=== PATIENT | female | born 1975 | race Caucasian/White ===

== ENCOUNTER 2022-08-19 08:31 | Emergency (ER) | payer OTHER ==
[~2022-08-19] VITALS: Ht 160 cm; Wt 56.2 kg
--- NOTE | 2022-08-19 08:50 | ED Integumentary General ---
General Chief Complaint: Skin/Wound Problems Stated Complaint: RIGHT FOOT PAIN Source: patient Exam Limitations: no limitations History of Present Illness Date Seen by Provider: Aug 19, 2022 Time Seen by Provider: 08:40 Initial Comments Patient is a 46-year-old female who presents to the emergency room with a chief complaint of right foot pain. Patient has been fighting a plantars wart for approximately 2-1/2 years. She moved here from [place] where she had been seeing a software quality test engineer for treatment. Has not been able to get rid of the wart. She did have cryotherapy approximately 2 weeks ago to the plantars wart complaining of increasing pain that is now causing some low back pain due to limping. She also complains of bilateral axillary cutaneous abscesses currently applying clindamycin topical gel without much relief. Took a course of doxycycline about 2 weeks ago for 7 days, no improvement. No fevers or chills. No swelling. No drainage. Severity: moderate Location: feet, extremities (bilateral axillae) Possible Cause: other (plantar wart) Associated Symptoms: other (lesions bilateral arm pits) Allergies and Home Medications Allergies Coded Allergies: No Known Drug Allergies (Unverified , 08/19/22) Patient Home Medication List Home Medication List Reviewed: Yes Doxycycline Hyclate (Doxycycline Hyclate) 100 Mg Tablet, 100 MG PO BID Prescribed by: KRYSTYNA CARABALLO on 08/19/22 0908 Tramadol HCl (Tramadol HCl) 50 Mg Tablet, 50 MG PO Q6H Prescribed by: KRYSTYNA CARABALLO on 08/19/22 0908 Review of Systems Review of Systems Constitutional: see HPI EENTM: no symptoms reported Respiratory: no symptoms reported Cardiovascular: no symptoms reported Gastrointestinal: no symptoms reported Genitourinary: no symptoms reported Musculoskeletal: joint pain (right foot pain) Skin: other (flat wart right foot) Past Smdrmjw-[id number] Hx Patient Social History Tobacco Use?: Yes Tobacco type used: Cigarettes Smoking Status: Current Everyday Smoker Use of E-Cig and/or Vaping dev: No Substance use?: No Alcohol Use?: No Pt feels they are or have been: No Physical Exam Vital Signs Vital Signs - First Documented 08/19/22 08:39 Temp 37.1 Pulse 98 Resp 16 B/P (MAP) 147/107 (120) Pulse Ox 95 O2 Delivery Room Air Capillary Refill : General Appearance: WD/WN, no apparent distress HEENT: PERRL/EOMI Cardiovascular: regular rate, rhythm Respiratory: lungs clear, normal breath sounds, no respiratory distress, no accessory muscle use Extremities: normal range of motion, normal inspection Neurologic/Psychiatric: alert, normal mood/affect, oriented x 3 Skin: normal color, warm/dry, other (Indurated area about 3 and half centimeters at the plantar surface of the right foot distal metatarsal #3/4. Tender to palpation. Hyperkeratotic. No erythema. Minimal swelling. Addit ionally patient has folliculitis in both axilla. No surrounding erythema. No drainage. 1 small area under the left axilla has a small pustule.) Progress/Results/Core Measures Results/Orders Vital Signs/I&O 08/19/22 08/19/22 08:39 09:22 Temp 37.1 37.1 Pulse 98 98 Resp 16 16 B/P (MAP) 147/107 (120) 135/94 Pulse Ox 95 95 O2 Delivery Room Air Room Air Departure Impression Primary Impression: Plantar wart of right foot Additional Impression: Folliculitis of both axillae Disposition: HOME, SELF-CARE Condition: Stable Departure-Patient Inst. Decision time for Depature: 09:04 Referrals: JAILENE TADEO DO (PCP/Family) Primary Care Physician Patient Instructions: Folliculitis, Plantar Warts (DC) Add. Discharge Instructions: You can use a shoe insert in your right shoe to help take the pressure off the wart ("metatarsal support pad"). This may help with discomfort. [id number] ibuprofen 3 tablets which is 600 mg every 6 hours with food as needed for pain. Additionally I have written you a prescription for some tramadol. You can take this in the evening when you are not working. 1 every 6 hours as needed. I am going to restart you on doxycycline 100 mg tablets twice a day for 10 days. This is for the lesions in your armpits. Use Dial soap under your arms for cleaning, this is a great antibacterial soap and needs to be used twice a day. If you develop redness or worsening swelling in your armpits, fever please return to the emergency room for reevaluation. Scripts Tramadol HCl (Tramadol HCl) 50 Mg Tablet 50 MG PO Q6H, #20 TAB Prov: KRYSTYNA CARABALLO MD 08/19/22 Doxycycline Hyclate (Doxycycline Hyclate) 100 Mg Tablet 100 MG PO BID for 10 Days, #20 TAB Prov: KRYSTYNA CARABALLO MD 08/19/22 KRYSTYNA CARABALLO MD Aug 19, 2022 08:50
[2022-08-19] MEDS ORDERED: DOXY100T2 PO (09:08)
[2022-08-19] MEDS ORDERED: TRM50T PO (09:08)
[2022-08-19 09:22] VITALS: BP 135/94
== END 2022-08-19 09:22 | disposition home or self-care (01) ==
LOC: ER 08:33
DX: L73.9 Follicular disorder, unspecified (principal); B07.0 Plantar wart; F17.210 Nicotine dependence, cigarettes, uncomplicated
CPT/HCPCS: 99281